=== PATIENT | male | born 1980 | race Caucasian/White ===

== ENCOUNTER 2017-06-27 13:09 | Emergency (ER) | payer BC ==
[~2017-06-27] VITALS: Ht 177.8 cm; Wt 109.4 kg
[~2017-06-27 13:09] MED LIST: FLEXERIL10 MG PO
[2017-06-27 14:48] LABS: HEMATOCRIT 46.3 % (38.0-50.0); MCH 29.2 PG (29.0-34.0); MCHC 33.9 G/DL (30.0-36.0); MCV 86.2 FL (86-99); MEAN PLAT.VOLUME 11.2 uM^3 (9.0-12.4); PLATELET COUNT 200 K/uL (156-360); RED BLOOD COUNT 5.37 M/uL (4.00-5.50); WHITE BLOOD COUNT 8.2 K/uL (4.1-10.2)
[2017-06-27 14:59] LABS: CHLORIDE 105 mEq/L (99-109); POTASSIUM 4.3 mEq/L (3.7-5.4); SODIUM 139 mEq/L (136-147)
[2017-06-27 15:02] LABS: GLUCOSE 91 mg/dL (70-99)
[2017-06-27 15:03] LABS: ANION GAP 12 MEQ/L (2-14)
[2017-06-27 15:04] LABS: TOTAL BILIRUBIN 0.6 mg/dL (0.0-1.0)
[2017-06-27 15:05] LABS: ALKALINE PHOSPHATASE 116 IU/L (3-129); GFR ESTIMATE (CALCULATED) > 59 mL/min/
[2017-06-27 15:06] LABS: UREA NITROGEN (BUN) 13 mg/dL (9-23)
[2017-06-27 15:44] LABS: ADD MIUA? NO; BILIRUBIN NEGATIVE; BLOOD NEGATIVE; COLOR YELLOW ((YELLOW)); GLUCOSE (STRIP) NEGATIVE; KETONES NEGATIVE; LEUKOCYTES NEGATIVE; NITRITE NEGATIVE; PROTEIN (STRIP) NEGATIVE; SPECIFIC GRAVITY 1.019 (1.000-1.030); UROBILINOGEN 0.2 MG/DL (0.2-1.0)
[2017-06-27 16:05] LABS: UCUL ADDED? NO
[2017-06-27 16:18] LABS: INTERNAL CONTROL VALID? YES; MONOSPOT (MONONUCLEOSIS SEROL) NEGATIVE
[2017-06-27] MEDS ORDERED: ZITHROMAX Z-PA250 MG PO (17:03)
[2017-06-27] MEDS ORDERED: MOTION SICKNESS25 M1 PO (17:03)
[2017-06-27] MEDS ORDERED: FLONASE16 G1 BOTH NARES (17:03)
[2017-06-27 17:23] VITALS: BP 128/80
== END 2017-06-27 17:24 | disposition home or self-care (01) ==
LOC: EME 13:09
PROVIDERS: Physician Assistant
DX: J01.00 Acute maxillary sinusitis, unspecified (principal); R42 Dizziness and giddiness; Z88.2 Allergy status to sulfonamides
CPT/HCPCS: 80053; 81003; 85027; 86308; 93005; 99281; 99285; J7030